=== PATIENT | female | born 1950 | race Asian ===

== ENCOUNTER 2019-04-15 08:29 | Emergency (ER) | payer MEDICARE, MEDICAID ==
[~2019-04-15] VITALS: Ht 157.5 cm; Wt 72.7 kg
[~2019-04-15 08:29] MED LIST: ATOR20TA PO; FAMO-128 PO; FLUO20CA39 PO; FLUT16SP2 NAS; MECL-111 PO; METO5TAB98 PO; ONDA4TAB6 PO; PIOG15TA8 PO; POTA20TA19 PO; PROM12.512 PO; RANI-366 PO; SUCR1TAB PO; VALA500T PO; ZES10T PO
[2019-04-15 08:37] VITALS: BP 136/75
[2019-04-15] MEDS ORDERED: DOXY100C43 PO (09:06)
[2019-04-15] MEDS ORDERED: PRED20TA PO (09:06)
== END 2019-04-15 09:36 | disposition home or self-care (01) ==
LOC: ER 08:30
DX: J20.9 Acute bronchitis, unspecified (principal); J06.9 Acute upper respiratory infection, unspecified; E78.00 Pure hypercholesterolemia, unspecified; I10 Essential (primary) hypertension; K21.9 Gastro-esophageal reflux disease without esophagitis; E11.9 Type 2 diabetes mellitus without complications; F32.9 Major depressive disorder, single episode, unspecified; Z98.890 Other specified postprocedural states; Z56.0 Unemployment, unspecified; Z79.899 Other long term (current) drug therapy
CPT/HCPCS: 99283

== ENCOUNTER 2020-12-11 12:04 | Emergency (ER) | payer MEDICARE, MEDICAID ==
[~2020-12-11] VITALS: Ht 160 cm; Wt 72.7 kg
[~2020-12-11 12:04] MED LIST changes: -MECL-111 PO; +MECL-159 PO
[2020-12-11 13:20] LABS: BASOPHILS % (AUTO) 0.5 % (0-1); EOSINOPHILS % (AUTO) 0.6 % (0-6); HEMOGLOBIN 12.5 g/dl (12.0-16.0); LYMPHOCYTES # (AUTO) 0.8 X10'3 (1.1-4.8); LYMPHOCYTES % (AUTO) 13.8 % (21-51); MEAN CORPUSCULAR HEMOGLOBIN 31.5 PG (27.0-31.0); MEAN CORPUSCULAR HGB CONC 33.7 g/dL (33.0-36.5); MEAN CORPUSCULAR VOLUME 93.3 FL (78-98); MEAN PLATELET VOLUME 9.3 FL (7.4-10.4); MONOCYTES # (AUTO) 0.3 X10'3 (0-0.9); MONOCYTES % (AUTO) 4.8 % (2-12); NEUTROPHILS # (AUTO) 4.5 X10'3 (1.8-7.7); NEUTROPHILS % (AUTO) 80.3 % (42-75); PLATELET COUNT 154 X10'3 (140-440); RED BLOOD COUNT 3.97 X10'6 (4.20-5.60); WHITE BLOOD COUNT 5.7 X10'3 (4.5-11.0)
[2020-12-11 13:29] LABS: ALANINE AMINOTRANSFERASE 32 U/L (12-78); ALBUMIN 3.5 G/DL (3.4-5.0); ALBUMIN/GLOBULIN RATIO 0.8 (1.1-1.5); ALKALINE PHOSPHATASE 110 IU/L (46-116); ANION GAP 9 (8-16); ASPARTATE AMINO TRANSFERASE 20 U/L (10-37); BILIRUBIN,TOTAL 0.5 MG/DL (0.1-1.0); BLOOD UREA NITROGEN 14 MG/DL (7-18); BUN/CREATININE RATIO 13.3 (6.6-38.0); CALCIUM 8.8 MG/DL (8.5-10.1); CHLORIDE 107 MMOL/L (99-107); CREATININE 1.05 MG/DL (0.40-0.90); GLUCOSE 181 MG/DL (70-104); POTASSIUM 3.2 MMOL/L (3.5-5.1); SODIUM 144 MMOL/L (135-145); TOTAL CARBON DIOXIDE 27.8 MMOL/L (24-32); TOTAL PROTEIN 7.7 G/DL (6.4-8.2); eGFR 52 ML/MIN
[2020-12-11] MEDS ORDERED: LEVO25TA2 PO (13:49)
[2020-12-11] MEDS ORDERED: normal saline 1000ML IV soln IVB ONE (14:30)
[2020-12-11] MEDS ORDERED: proCHLORperazine 10 MG/2 ml inj IV ONE (14:30)
[2020-12-11] MEDS ORDERED: LIDOcaine Viscous 15ml cup MM ONE (14:30)
[2020-12-11] MEDS ORDERED: pantoprazole 40mg Tablet.DR PO ONE (14:30)
[2020-12-11] MEDS ORDERED: mag hydrox/Alum hydrox/simeth 30ml oral suspension PO ONE (14:30)
[2020-12-11] MEDS ORDERED: iohexol 300mg/ml 100ml inj. ONE (15:14)
[2020-12-11] MEDS ORDERED: MESSAGE TO NURSING PO NR (16:04)
[2020-12-11 16:13] VITALS: BP 162/77
[2020-12-11 16:58] LABS: CLARITY,URINE CLOUDY (Clear); COLOR,URINE YELLOW (Yellow); GLUCOSE, URINE NEGATIVE (Neg); KETONES,URINE NEGATIVE (Neg); LEUKOCYTE ESTERASE ,URINE NEGATIVE (Neg); NITRITES, URINE NEGATIVE (Neg); OCCULT BLOOD,URINE TRACE-INTACT (Neg); PH,URINE 5.5 (4.8-8.0); PROTEIN,URINE 100 mg/dl (Neg); UROBILINOGEN,URINE 0.2 E.U/dL (0.2-1.0)
[2020-12-11 17:04] LABS: UA COLLECTION TYPE CLN CATCH MIDSTREAM
[2020-12-11] MEDS ORDERED: DICY10CA88 PO (17:04)
[2020-12-11] MEDS ORDERED: MAG355OR18 PO (17:04)
[2020-12-11] MEDS ORDERED: PANT20TA18 PO (17:04)
[2020-12-11 17:05] LABS: SQUAMOUS EPITHELIAL CELL,UR MODERATE /LPF (FEW)
[2020-12-11 17:06] LABS: AMORPHOUS URATES 2+
[2020-12-11 17:10] LABS: BACTERIA,URINE NONE SEEN /HPF (Neg); RBC,URINE NONE SEEN /HPF (0-2); WBC,URINE 0-4 /HPF (0-4)
== END 2020-12-11 17:34 | disposition home or self-care (01) ==
LOC: ER 12:05
DX: R10.84 Generalized abdominal pain (principal); R11.0 Nausea; E78.00 Pure hypercholesterolemia, unspecified; I10 Essential (primary) hypertension; K21.9 Gastro-esophageal reflux disease without esophagitis; E11.9 Type 2 diabetes mellitus without complications; Z98.890 Other specified postprocedural states; Z56.0 Unemployment, unspecified; Z79.899 Other long term (current) drug therapy
CPT/HCPCS: 36415; 71045; 74177; 80053; 81001; 82948; 83880; 84484; 85025; 93005; 96361; 96374; 99285; J0780; J7030; Q9967

== ENCOUNTER 2023-05-08 10:34 | Emergency (ER) | payer MEDICARE, MEDICAID ==
[~2023-05-08] VITALS: Ht 157.5 cm; Wt 70.8 kg
[~2023-05-08 10:34] MED LIST changes: +DICY10CA88 PO; -FLUO20CA39 PO; +LEVO25TA2 PO; -MECL-159 PO; -METO5TAB98 PO; +PANT20TA18 PO; -POTA20TA19 PO; -PROM12.512 PO; -RANI-366 PO; -SUCR1TAB PO
[2023-05-08 11:06] LABS: BASOPHILS % (AUTO) 0.6 % (0-1); EOSINOPHILS # (AUTO) 0.1 X10'3 (0-0.9); HEMATOCRIT 32.7 % (35.0-45.0); HEMOGLOBIN 11.1 g/dl (12.0-16.0); LYMPHOCYTES # (AUTO) 0.8 X10'3 (1.1-4.8); LYMPHOCYTES % (AUTO) 14.6 % (21-51); MEAN CORPUSCULAR HEMOGLOBIN 32.1 PG (27.0-31.0); MEAN CORPUSCULAR HGB CONC 33.9 g/dL (33.0-36.5); MEAN CORPUSCULAR VOLUME 94.7 FL (78-98); MONOCYTES # (AUTO) 0.3 X10'3 (0-0.9); MONOCYTES % (AUTO) 5.3 % (2-12); NEUTROPHILS # (AUTO) 4.2 X10'3 (1.8-7.7); NEUTROPHILS % (AUTO) 78.5 % (42-75); PLATELET COUNT 163 X10'3 (140-440); RED BLOOD COUNT 3.45 X10'6 (4.20-5.60); RED CELL DISTRIBUTION WIDTH 12.7 % (11.5-14.5); WHITE BLOOD COUNT 5.3 X10'3 (4.5-11.0)
[2023-05-08 11:19] LABS: ALANINE AMINOTRANSFERASE 50 U/L (12-78); ALBUMIN 3.4 G/DL (3.4-5.0); ALBUMIN/GLOBULIN RATIO 0.8 (1.1-1.5); ALKALINE PHOSPHATASE 126 IU/L (46-116); ANION GAP 1 (8-16); ASPARTATE AMINO TRANSFERASE 34 U/L (10-37); BILIRUBIN,TOTAL 0.4 MG/DL (0.1-1.0); BLOOD UREA NITROGEN 25 MG/DL (7-18); BUN/CREATININE RATIO 22.1 (10.0-20.0); CALCIUM 8.9 MG/DL (8.5-10.1); CHLORIDE 107 MMOL/L (99-107); CREATININE 1.13 MG/DL (0.40-0.90); GLUCOSE 131 MG/DL (70-104); SODIUM 139 MMOL/L (135-145); TOTAL CARBON DIOXIDE 31.4 MMOL/L (24-32); TOTAL PROTEIN 7.6 G/DL (6.4-8.2); eCRCL 35 ML/MIN; eGFR 47 ML/MIN
[2023-05-08 11:26] LABS: PRO BRAIN NATRIURETIC PEPTIDE 444 PG/ML (0-125)
[2023-05-08 12:22] VITALS: TEMP 98.1
[2023-05-08] MEDS ORDERED: pantoprazole 40 MG vial IV ONE (13:10)
[2023-05-08] MEDS ORDERED: ondansetron/PF 4mg/2ml inj IV ONE (13:10)
[2023-05-08] MEDS ORDERED: normal saline 1000ML IV soln IVB ONE (13:10)
[2023-05-08] MEDS ORDERED: meclizine 12.5mg tablet PO ONE ×2 (13:10→14:20)
[2023-05-08] MEDS ORDERED: pantoprazole 40MG/NS 100ML BAG 100 ML IV ONE (13:15)
[2023-05-08 13:16] LABS: BILIRUBIN,URINE NEGATIVE (Neg); CLARITY,URINE SLIGHTLY CLOUDY (Clear); COLOR,URINE YELLOW (Yellow); GLUCOSE, URINE NEGATIVE (Neg); KETONES,URINE NEGATIVE (Neg); LEUKOCYTE ESTERASE ,URINE NEGATIVE (Neg); NITRITES, URINE NEGATIVE (Neg); OCCULT BLOOD,URINE TRACE-INTACT (Neg); PH,URINE 5.5 (4.8-8.0); PROTEIN,URINE 30 mg/dl (Neg); UROBILINOGEN,URINE 0.2 E.U/dL (0.2-1.0)
[2023-05-08 13:24] LABS: UA COLLECTION TYPE CLN CATCH MIDSTREAM
[2023-05-08 13:28] LABS: MUCUS STRANDS FEW /LPF (Neg); SQUAMOUS EPITHELIAL CELL,UR MANY /LPF (FEW)
[2023-05-08 13:29] LABS: BACTERIA,URINE FEW /HPF (Neg); RBC,URINE 0-2 /HPF (0-2); TRANSITIONAL EPI CELLS,URINE FEW /HPF; WBC,URINE 0-4 /HPF (0-4)
[2023-05-08] MEDS ORDERED: MECL-226 PO (14:15)
[2023-05-08] MEDS ORDERED: mag hydrox/Alum hydrox/simeth 30ml oral suspension PO ONE (14:20)
[2023-05-08] MEDS ORDERED: LIDOcaine Viscous 15ml cup MM ONE (14:20)
--- NOTE | 2023-05-08 16:25 | NUR ---
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 Daughter is on her way.
[2023-05-08 16:50] VITALS: BP 144/67; PULSE 56; RESP 24; O2SAT 97
== END 2023-05-08 16:54 | disposition home or self-care (01) ==
LOC: ER 10:34
DX: R42 Dizziness and giddiness (principal); R10.13 Epigastric pain
CPT/HCPCS: 36415; 71045; 80053; 81001; 83880; 84484; 85025; 93005; 96365; 96366; 96375; 99285; C9113; J2405; J7030; J8597

== ENCOUNTER 2025-05-23 09:19 | Emergency (ER) | payer MEDICARE, MEDICAID ==
[~2025-05-23] VITALS: Ht 160 cm; Wt 60.3 kg
[~2025-05-23 09:19] MED LIST changes: +MECL-226 PO
[2025-05-23 09:26] VITALS: BP 146/71; PULSE 65; TEMP 97.6; O2SAT 100
--- NOTE | 2025-05-23 10:11 | Physician Documentation ---
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 She states it started about six weeks ago when she slept wrong and woke woke up with pain on the right side of her neck but now she is having pain on the left side of her neck. She has tried chiropractic therapy, topical treatment such as icy hot or Terrence-Fernando as well as Aleve. She denies any pain in the center of her neck, chest pain, shortness of breath, weakness of her extremities, fever, malaise. Denies worst headache of her life. Medication Reconciliation Allergies: Coded Allergies: No Known Allergies (Unverified , 05/08/23) Scheduled Atorvastatin Calcium* (Lipitor*), 20 MG PO HS, (Reported) Dicyclomine Hcl* (Bentyl*), 1 CAP PO Q12H Famotidine (Pepcid), 1 TAB PO Q12H Fluticasone Propionate (Flonase), 1 SPR ADDISON DAILY, (Reported) Lisinopril* (Zestril*), 10 MG PO DAILY, (Reported) Pantoprazole Sodium (Protonix), 1 TAB PO DAILY Pioglitazone Hcl* (Actos*), 15 MG PO DAILY, (Reported) Valacyclovir Hcl (Valtrex), 500 MG PO DAILY, (Reported) levothyroxine sodium* (Synthroid*), 2 TAB PO DAILY, (Reported) Scheduled PRN Meclizine HCl (Meclizine HCl), 1 TAB PO Q8H PRN for dizziness/vertigo Ondansetron Hcl (Zofran), 1 TAB PO Q6H PRN for nausea/vomiting Past Medical History Past Medical History: Vertigo, High Cholesterol, Hypertension, GERD, Diabetes, Thyroid (unspecified), Depression Past Surgical History: orthopedic surgeries Alcohol Use: None Drug Use: none Lives with: Spouse, Family Lives In: Home Occupation: unemployed Review of Systems All Other Systems at this time: Reviewed and Negative Physical Exam Vital Signs: Temperature: 97.6, Source: Temporal, Heart Rate: 65, Respiratory Rate: 16, BP: 146/71, Pulse Oximetry: 100, Weight: 60.300 Physical Exam GENERAL: Alert, no acute distress. HEENT: NCAT, EOMI, PERRL, normal oropharynx, moist oral mucosa. ear canals patent tm intact. NECK: Supple, trachea midline. No cervical lymphadenopathy CARDIAC: Regular rate and rhythm, no murmurs, rubs, or gallops. Equal distal pulses. No lower extremity edema, cap refill less than 2 seconds. RESPIRATORY: Equal breath sounds, clear to auscultation bilaterally, no respiratory distress. GASTROINTESTINAL: Normoactive bowel sounds x4 quadrants, non distended, soft, nontender, No guarding or rebound. MUSCULOSKELETAL: Tenderness over paraspinal muscles of cervical spine, no midline tenderness. Active range motion of cervical spine is reduced with lateral rotation to the left and right due to patient's pain. Normal gait. NEUROLOGICAL: Awake, alert, and oriented x 3. Reheater Helper strength 5/5. SKIN: Warm/dry, no pallor, no rash. PSYCH: Alert and appropriate. Affect congruent with mood. Speech is clear. Good eye contact. Progress Results/Orders Results/Orders Completed Orders - ANIL IBRAHIM Lidocaine 5% Patch (Lidoderm 5% Patch) (05/23/25 10:04) Vital Signs 05/23/25 09:26 Temp 97.6 Pulse 65 Resp 16 B/P (MAP) 146/71 Pulse Ox 100 Medical Decision Making Additional information obtaine: N/A Findings na Differential Dx:Considerations: Include: Cervical muscle spasm, Discitis, DJD, Meningitis, Thyroiditis, Torticollis, Vertebral artery dissect., Other Additional Comment Patient's pain is on the left and right side of her cervical spine over the paraspinal muscles consistent with muscle spasms. Given the fact that the pain started in her neck in his now radiating to her head this is most consistent with occipital neuralgia. Patient does not have any lymphadenopathy, fever, any signs of meningitis, given the lack of trauma and midline tenderness I do not feel it was necessary to perform an x-ray here Departure Time of Disposition: 10:12 Disposition: 01 HOME / SELF CARE / HOMELESS Impression: Primary Impression: Bilateral occipital neuralgia Additional Impression: Muscle pain, cervical Condition: Stable Discharge Instructions: Occipital Neuralgia Additional Instructions: f/u with pcp for referral to physical therapy for your neck pain/muscle spasms you can take tylenol 650mg three times day as well as advil, motrin or aleve (as long as you have normal kidney function and you are not on blood thinners) for your pain Referrals: NO PRIMARY CARE PROVIDER (PCP) Prescriptions Tramadol HCl (Tramadol HCl) 50 Mg Tablet 1 TAB PO TID PRN PRN for pain for 7 Days, #21 TAB dx: occipital neuralgia m54.81 Prov: ANIL IBRAHIM 05/23/25 Gabapentin (Gabapentin) 100 Mg Capsule 1 CAP PO Q8H for 10 Days, #30 CAP 0 Refills Prov: ANIL IBRAHMI 05/23/25 Education Educated: Patient Educated regarding: diagnosis, treatment, need for follow up Signature Scribe Signature: x Attestation: ANIL Woo May 23, 2025 10:11
[2025-05-23] MEDS ORDERED: TRAM50TA2 PO (10:18)
[2025-05-23] MEDS ORDERED: GABA-530 PO (10:18)
[2025-05-23 10:28] VITALS: RESP 15
== END 2025-05-23 10:26 | disposition home or self-care (01) ==
LOC: ER 09:20
DX: M54.81 Occipital neuralgia (principal); M54.2 Cervicalgia; I10 Essential (primary) hypertension; E78.00 Pure hypercholesterolemia, unspecified; K21.9 Gastro-esophageal reflux disease without esophagitis; F32.A Depression, unspecified; E11.9 Type 2 diabetes mellitus without complications; Z56.0 Unemployment, unspecified; Z98.890 Other specified postprocedural states
CPT/HCPCS: 99283